=== PATIENT | female | born 1960 | race Caucasian/White ===

== ENCOUNTER 2017-08-06 08:00 | Outpatient (CLI) | payer OTHER ==
--- NOTE | 2017-08-06 16:48 | ULT ---
RIGHT UPPER QUADRANT ULTRASOUND: 08/06/2017 HISTORY: Ultrasonography of the right upper quadrant was performed for evaluation of pain and nausea. FINDINGS: The liver is upper normal in size, measuring 15.4 cm in oblique sagittal length. No dilated ducts or focal masses are identified. The pancreas is largely obscured by gas, but the visible areas seem no rmal. The gallbladder contains no evidence of stones or wall thickening. A few echoes seen here and there throughout it are probably artifactual rather than sludge. The common bile duct is borderline large at 7 mm in size. It is unknown if this is actually significant or not. The right kidney appe ars normal and is 11.6 cm long. IMPRESSION: No acute right upper quadrant findings. Common bile duct size is borderline large, but this may or m ay not be significant. POS: [facility]
== END 2017-08-06 08:01 | disposition home or self-care (01) ==
LOC: BURULT 08:00
PROVIDERS: ATTEND Family Medicine
DX: R11.0 Nausea (principal)
CPT/HCPCS: 76705

== ENCOUNTER → 2018-04-26 | Emergency (ER) | payer OTHER ==
[~2018-04-26] MED LIST: Lidocaine Viscous Sol 2% 15 ml UD Cup ONE; Mag-Al Plus 1200 MG/1200 MG/120 MG/30 ML UDCUP ONE; Metoprolol Tartrate 5 MG/5 ML VIAL ONE; Nitroglycerin 0.4 MG TAB 1 EACH ONE; Pantoprazole 40 MG VIAL ONE
[2018-04-26 05:52] LABS: #Basophils 0.1 thou/uL (0.0-0.2); #Eosinphils 0.1 thou/uL (0.0-0.7); #Lymphocytes 2.6 thou/uL (1.20-3.40); #Monocytes 0.6 thou/uL (0.11-0.59); #Neutrophils 4.1 thou/uL (1.40-6.50); %Basophils 1.5 % (0.0-1.0); %Eosinophils 1.4 % (0.0-10.0); %Lymphocytes 34.2 % (21.0-51.0); %Monocytes 8.2 % (0.0-10.0); %Neutrophils 54.7 % (42.0-75.0); Hemoglobin 14.8 g/dL (12.0-16.0); Mean Corpuscular HGB CONC 34.3 g/dL (32.0-36.0); Mean Corpuscular Hemoglobin 31.3 pg (27.0-31.0); Mean Corpuscular Volume 91.4 fL (78.0-98.0); Mean Platelet Volume 7.3 fL (7.4-10.4); Platelet Count 354 thou/uL (130-400); RBC Distribution Width 11.6 % (11.5-14.5); Red Blood Cell (RBC) Count 4.73 mill/uL (4.20-5.40); White Blood Cell (WBC) Count 7.4 thou/uL (4.8-10.8)
[2018-04-26 06:07] LABS: ALT (SGPT) 14 U/L (8-55); AST (SGOT) 18 U/L (5-34); Albumin 4.5 g/dL (3.5-5.0); Alkaline Phosphatase 86 U/L (40-150); Anion Gap 15 mmol/L (10-20); BUN (Urea Nitrogen) 18 mg/dL (9.8-20.1); Bilirubin, Total 0.5 mg/dL (0.2-1.2); Calc. Creatinine Clearance 0 mL/min (70-130); Calcium 9.7 mg/dL (7.8-10.44); Carbon Dioxide 23 mmol/L (22-29); Chloride 105 mmol/L (98-107); Estimated GFR-MDRD 68; Globulin 2.8 g/dL (2.4-3.5); Glucose 97 mg/dL (70-105); Lipase 19 U/L (8-78); Potassium 3.3 mmol/L (3.5-5.1); Protein, Total 7.3 g/dL (6.0-8.3); Sodium 140 mmol/L (136-145)
--- NOTE | 2018-04-26 08:49 | RAD ---
PORTABLE CHEST: DATE: 04/26/2018. FINDINGS: An AP portable film at 0522 is compared with a 09/20/2014 study. The heart is normal in size. There is no vascular congestion, edema, or pleural effusion. No focal pulmonary infiltrate was seen. The trachea is midline. IMPRESSION: Stable exam showing no acute finding. POS: [facility]
== END ==
LOC: BURERS 05:29
DX: Z48.817 Encounter for surgical aftercare following surgery on the skin and subcutaneous tissue (principal); F17.210 Nicotine dependence, cigarettes, uncomplicated; J45.909 Unspecified asthma, uncomplicated; Z79.899 Other long term (current) drug therapy
CPT/HCPCS: 71045; 80053; 83690; 84484; 85025; 93005; 94760; 96361; 96374; 96375; 96376; C9113

== ENCOUNTER 2019-03-31 10:04 | Outpatient (CLI) | payer OTHER ==
--- NOTE | 2019-03-31 10:26 | RAD ---
EXAM: Chest 2 views: HISTORY: Cough COMPARISON: None. FINDINGS: There is a normal-sized cardiomediastinal silhouette. There is no evidence of consolidation, mass, or pleural effusion. The bones are unremarkable. IMPRESSION: No evidence of acute cardiopulmonary disease
== END 2019-03-31 10:05 | disposition home or self-care (01) ==
LOC: BURRAD 10:04
PROVIDERS: ATTEND Family Medicine
DX: R05 Cough (principal)
CPT/HCPCS: 71046

== ENCOUNTER 2020-02-02 08:16 | Emergency (ER) | payer OTHER ==
[2020-02-02] MEDS ORDERED: Lorazepam 2 MG/ML VIAL ONE (08:52)
[2020-02-02] MEDS ORDERED: Lorazepam 0.5 MG TAB ONE (08:56)
[2020-02-02 09:21] LABS: Hemoglobin 14.3 g/dL (12.0-16.0); Mean Corpuscular HGB CONC 33.7 g/dL (32.0-36.0); Mean Corpuscular Hemoglobin 32.2 pg (27.0-31.0); Mean Corpuscular Volume 95.4 fL (78.0-98.0); Mean Platelet Volume 7.5 fL (7.4-10.4); Platelet Count 333 thou/uL (130-400); RBC Distribution Width 11.6 % (11.5-14.5); Red Blood Cell (RBC) Count 4.45 mill/uL (4.20-5.40); White Blood Cell (WBC) Count 5.7 thou/uL (4.8-10.8)
[2020-02-02 09:37] LABS: ALT (SGPT) 16 U/L (8-55); AST (SGOT) 15 U/L (5-34); Alkaline Phosphatase 71 U/L (40-110); Anion Gap 14 mmol/L (10-20); BUN (Urea Nitrogen) 15 mg/dL (9.8-20.1); Bilirubin, Total 0.5 mg/dL (0.2-1.2); Calc. Creatinine Clearance 0 mL/min (70-130); Carbon Dioxide 25 mmol/L (22-29); Chloride 108 mmol/L (98-107); Estimated GFR-MDRD 71; Globulin 2.5 g/dL (2.4-3.5); Glucose 82 mg/dL (70-105); Potassium 3.7 mmol/L (3.5-5.1); Protein, Total 6.5 g/dL (6.0-8.3); Sodium 143 mmol/L (136-145)
[2020-02-02 09:39] LABS: Eosinophils 1 % (0-10); Lymphocytes 21 % (21-51); MDiff Complete? YES; Monocytes 6 % (0-10); Neutrophil 63 % (42-75); Platelet Morphology Comment Appears Adequate; Reactive Lymphocytes 7 % (0-10)
[2020-02-02 11:23] LABS: Troponin I Less than 0.010 ng/mL (< 0.028)
== END 2020-02-02 11:40 | disposition home or self-care (01) ==
LOC: BURERS 08:16
DX: R07.89 Other chest pain (principal); F43.22 Adjustment disorder with anxiety
CPT/HCPCS: 36415; 80053; 84484; 85025; 93005; J2060

== ENCOUNTER 2021-04-20 07:44 | Emergency (ER) | payer BC, OTHER | END 2021-04-20 08:32 | disposition home or self-care (01) | LOC: BURERS 07:44 | DX: J02.9 Acute pharyngitis, unspecified (principal); Z85.3 Personal history of malignant neoplasm of breast | CPT/HCPCS: 87081; 87430; 87804; 99283 ==

== ENCOUNTER 2021-11-21 14:39 | Outpatient (CLI) | payer BC | END 2021-11-21 14:40 | disposition home or self-care (01) | LOC: BURRAD 14:39 | PROVIDERS: ATTEND Family Medicine | DX: S99.922A Unspecified injury of left foot, initial encounter (principal); M25.572 Pain in left ankle and joints of left foot; M79.672 Pain in left foot; S92.352A Displaced fracture of fifth metatarsal bone, left foot, initial encounter for closed fracture ==

== ENCOUNTER 2022-06-16 10:00 | Emergency (ER) | payer BC ==
[2022-06-16] MEDS ORDERED: Aspirin Chewable 81 MG TAB ONE (10:12)
[2022-06-16 10:23] LABS: #Basophils 0.1 thou/uL (0.0-0.2); #Lymphocytes 1.4 thou/uL (1.20-3.40); #Monocytes 0.5 thou/uL (0.11-0.59); #Neutrophils 5.5 thou/uL (1.40-6.50); %Basophils 1.1 % (0.0-1.0); %Eosinophils 0.4 % (0.0-10.0); %Lymphocytes 18.8 % (21.0-51.0); %Monocytes 6.5 % (0.0-10.0); %Neutrophils 73.1 % (42.0-75.0); Hemoglobin 15.6 g/dL (12.0-16.0); Mean Corpuscular HGB CONC 32.3 g/dL (32.0-36.0); Mean Corpuscular Hemoglobin 30.7 pg (27.0-31.0); Mean Corpuscular Volume 95.2 fl (78.0-98.0); Mean Platelet Volume 6.8 fL (7.4-10.4); Platelet Count 409 10x3/uL (130-400); RBC Distribution Width 12.5 % (11.5-14.5); Red Blood Cell (RBC) Count 5.08 mill/uL (4.20-5.40); White Blood Cell (WBC) Count 7.4 10x3/uL (4.8-10.8)
[2022-06-16 10:39] LABS: ALT (SGPT) 23 U/L (8-55); AST (SGOT) 19 U/L (5-34); Albumin 4.7 g/dL (3.4-4.8); Alkaline Phosphatase 86 U/L (40-110); Anion Gap 14 mmol/L (10-20); BUN (Urea Nitrogen) 13 mg/dL (9.8-20.1); Bilirubin, Total 0.8 mg/dL (0.2-1.2); Calc. Creatinine Clearance 0 mL/min (70-130); Calcium 9.8 mg/dL (7.8-10.44); Carbon Dioxide 23 mmol/L (23-31); Chloride 107 mmol/L (98-107); Estimated GFR 73; Globulin 3.2 g/dL (2.4-3.5); Glucose 107 mg/dL (80-115); Lipase 9 U/L (8-78); Potassium 3.6 mmol/L (3.5-5.1); Protein, Total 7.9 g/dL (5.8-8.1); Sodium 140 mmol/L (136-145)
[2022-06-16 10:58] LABS: CKMB 2.6 ng/mL (0-6.6)
[2022-06-16] MEDS ORDERED: Acetaminophen 500 MG TAB ONE (11:09)
[2022-06-16] MEDS ORDERED: Nitroglycerin 2% Ointment 1 INCH/1 GM Packet ONE (11:09)
[2022-06-16] MEDS ORDERED: Iopamidol 370 76% 100 ML VIAL ONE (11:49)
[2022-06-16 13:24] LABS: Troponin I 0.269 ng/mL (< 0.028)
== END 2022-06-16 14:59 | disposition short-term general hospital (02) ==
LOC: BURERS 10:00
DX: I20.0 Unstable angina (principal); Z86.718 Personal history of other venous thrombosis and embolism; Z85.3 Personal history of malignant neoplasm of breast
CPT/HCPCS: 36415; 71045; 71275; 80053; 82553; 83690; 84484; 85025; 85379; 93005; 94760; 96372; J1650; Q9967

== ENCOUNTER 2023-12-09 07:20 | Outpatient (CLI) | payer BC | END 2023-12-09 07:21 | disposition home or self-care (01) | LOC: BURRAD 07:20 | PROVIDERS: ATTEND Family Medicine | DX: S59.901A Unspecified injury of right elbow, initial encounter (principal) ==

== ENCOUNTER 2024-01-12 09:30 | Emergency (ER) | payer BC ==
[2024-01-12 09:54] LABS: #Basophils 0.2 thou/uL (0.0-0.2); #Eosinophils 0.1 thou/uL (0.0-0.7); #Lymphocytes 1.9 thou/uL (1.20-3.40); #Monocytes 0.9 thou/uL (0.11-0.59); %Basophils 1.4 % (0.0-1.0); %Eosinophils 0.4 % (0.0-10.0); %Lymphocytes 15.6 % (21.0-51.0); %Monocytes 7.5 % (0.0-10.0); %Neutrophils 75.1 % (42.0-75.0); Hematocrit 49.5 % (36.0-47.0); Hemoglobin 15.9 g/dL (12.0-16.0); Mean Corpuscular HGB CONC 32.1 g/dL (32.0-36.0); Mean Corpuscular Hemoglobin 30.5 pg (27.0-31.0); Mean Corpuscular Volume 94.8 fl (78.0-98.0); Mean Platelet Volume 7.5 fL (7.4-10.4); Platelet Count 394 10x3/uL (130-400); RBC Distribution Width 11.8 % (11.5-14.5); Red Blood Cell (RBC) Count 5.21 mill/uL (4.20-5.40)
[2024-01-12 10:18] LABS: Troponin I 0.151 ng/mL (< 0.028)
[2024-01-12 10:20] LABS: ALT (SGPT) 19 U/L (8-55); AST (SGOT) 21 U/L (5-34); Albumin 4.4 g/dL (3.4-4.8); Alkaline Phosphatase 115 U/L (40-110); Anion Gap 18 mmol/L (10-20); BUN (Urea Nitrogen) 16 mg/dL (9.8-20.1); Bilirubin, Total 1.2 mg/dL (0.2-1.2); Calc. Creatinine Clearance 0 mL/min (70-130); Calcium 9.6 mg/dL (7.8-10.44); Carbon Dioxide 21 mmol/L (23-31); Chloride 107 mmol/L (98-107); Estimated GFR 63; Globulin 2.7 g/dL (2.4-3.5); Glucose 124 mg/dL (80-115); Potassium 4.5 mmol/L (3.5-5.1); Protein, Total 7.1 g/dL (5.8-8.1); Sodium 141 mmol/L (136-145)
[2024-01-12] MEDS ORDERED: Aspirin Chewable 81 MG TAB ONE (10:29)
== END 2024-01-12 11:46 | disposition short-term general hospital (02) ==
LOC: BURERS 09:30
DX: R55 Syncope and collapse (principal); R79.89 Other specified abnormal findings of blood chemistry; I10 Essential (primary) hypertension; E78.5 Hyperlipidemia, unspecified; I25.10 Atherosclerotic heart disease of native coronary artery without angina pectoris; Z79.82 Long term (current) use of aspirin; Z79.899 Other long term (current) drug therapy
CPT/HCPCS: 71046; 80053; 83880; 84484; 85025; 93005; 94760; 96360; 96361